=== PATIENT | female | born 1945 | race Caucasian/White ===

== ENCOUNTER → 2019-10-14 09:13 | Outpatient (BNVA) | payer MEDICARE, SELFPAY | PROVIDERS: Family Provider Family Medicine; PCP Family Medicine; Visit Provider Specialist | DX: M25.562 Pain in left knee (principal); M25.462 Effusion, left knee; M17.12 Unilateral primary osteoarthritis, left knee | CPT/HCPCS: 73560; 73565 ==

== ENCOUNTER → 2019-10-26 13:57 | Outpatient (BNVA) | payer MEDICARE, SELFPAY | PROVIDERS: Family Provider Family Medicine; PCP Family Medicine; Referring Provider Family Medicine; Visit Provider Specialist | DX: M25.561 Pain in right knee (principal); Z96.651 Presence of right artificial knee joint | CPT/HCPCS: 73562 ==

== ENCOUNTER 2020-06-01 10:15 | Outpatient (CLI) | payer MEDICARE, SELFPAY ==
--- NOTE | 2020-06-01 10:24 | MM_ITS ---
WS: [id number] BILATERAL DIGITAL SCREENING MAMMOGRAPHY WITH CAD CLINICAL INFORMATION: SCREENING HISTORY: Screening mammogram. No current complaints. COMPARISON: TECHNIQUE: Bilateral CC and MLO views. FINDINGS: Scattered fibroglandular densities bilaterally. No suspicious focal mass, asymmetry, calcifications, or architectural distortion. No evidence of malignancy. Benign luc[facility] center calcifications. MM/[place] [id number] IMPRESSION: BI-RADS: 2-Benign FOLLOW UP: 1 Year Follow-up Recommend return to annual screening mammography.
== END 2020-06-01 10:16 | disposition home or self-care (01) ==
PROVIDERS: PCP Family Medicine; Visit Provider Family Medicine
DX: Z12.31 Encounter for screening mammogram for malignant neoplasm of breast (principal)
CPT/HCPCS: 73560; 73565; 77067

== ENCOUNTER → 2020-06-03 13:30 | Outpatient (BNVA) | payer MEDICARE, SELFPAY | PROVIDERS: PCP Family Medicine; Visit Provider Specialist | DX: Z20.828 Contact with and (suspected) exposure to other viral communicable diseases (principal); M17.12 Unilateral primary osteoarthritis, left knee | CPT/HCPCS: 87635 ==

== ENCOUNTER 2020-06-07 14:52 | Observation (INO) | payer MEDICARE, SELFPAY ==
[2020-06-03 13:36] VITALS: BMI 29.5
[2020-06-03 13:44] LABS: Basophils # 0.1 10^3/uL (0.0-0.1); Basophils % 0.8 %; Eosinophils # 0.2 10^3/uL (0.0-0.8); Eosinophils % 2.1 %; Hematocrit 45.2 % (37.0-47.0); Hemoglobin 14.1 g/dL (11.5-15.3); Lymphocytes # 1.8 10^3/uL (0.8-4.8); Lymphocytes % 23.1 %; Mean Corpuscular HGB Conc 31.2 g/dL (30.0-36.0); Mean Corpuscular Hemoglobin 29.7 pg (28.0-34.0); Mean Corpuscular Volume 95.4 fL (81-99); Mean Platelet Volume 10.3 fL (7.4-10.4); Monocytes # 0.6 10^3/uL (0.2-0.9); Monocytes % 7.7 %; Neutrophils # 5.27 10^3/uL (1.8-7.7); Nucleated Red Blood Cells % 0 %; Platelet Count 323 10^3/cmm (130-400); Red Blood Count 4.74 10^6/uL (4.1-5.3); Red Cell Distribution Width 14.3 % (12.1-15.1)
[2020-06-03 13:52] LABS: Add Urine Microscopic? YES; Bilirubin Urine Neg (Negative); Blood Urine Neg (Negative); Glucose Urine UA Norm (Normal); Ketones Urine Negative (Negative); Leukocyte Esterase Urine Trace (Negative); Nitrate Urine Negative (Negative); Protein Urine Neg (Negative); Specific Gravity, Urine 1.015 (1.005-1.030); Urine Appearance Clear (CLEAR); Urine Color Yellow (Yellow); Urobilinogen Urine Norm (Negative); pH Urine 5 (5-7)
--- NOTE | 2020-06-03 13:52 | P.ANESASSM_ITS ---
Pre-Anesthetic Assessment Pre-Anesthetic Assessment: Height/Weight: Height 1.6 m Weight 75.75 kg Preop Diagnosis: DJD left knee Proposed Procedure: Operation Date: 06/07/20 07:00 Proposed Procedures p Left Total Knee Arthroplasty 43898 M17.0(Left) - Christine Mason MD Familial anesthetic complications: Received narcan for prior knee replacment Social: Social History: No alcohol and No tobacco Exam: Pre-Anes Outpt Exam: alert, oriented x 3, clear to auscultation carmen aterally and regular rate & rhythm Airway: MP: 2 Dentition: Full CV/HEM: CV/HEM: HTN GI: GI: GERD Musc/skel: Musc/skel: OA/DJD and RA Neuropsych: Neuropsych: None reported Anesthetic Plan: ASA status: 2 Anesthesia: Eval. for regional block (adductor) and Regional (specify below) (spinal) Risk of > 500 ml blood loss (7ml/kg in children): No PFSH Anesthesia PFSH: Medical History Fibromyalgia Left carpal tunnel syndrome Peroneal tendonitis of right lower leg Surgical History History of knee replacement procedure of right knee Data Anesthesia CBC & Chem 7: 06/03/20 13:20 06/03/20 13:20 Other Labs: Laboratory Results - last 48 hr 06/03/20 06/03/20 13:20 13:20 WBC 8.0 RBC 4.74 Hgb 14.1 Hct 45.2 MCV 95.4 MCH 29.7 MCHC 31.2 RDW 14.3 Plt Count 323 MPV 10.3 Neut % (Auto) 66.0 Lymph % (Auto) 23.1 [place] % (Auto) 7.7 Eos % (Auto) 2.1 Baso % (Auto) 0.8 Neut # (Auto) 5.27 Lymph # (Auto) 1.8 [place] # (Auto) 0.6 Eos # (Auto) 0.2 Baso # (Auto) 0.1 Nucleated RBC % (auto) 0 Nucleated RBCs # 0.0 Urine Color Yellow Urine Appearance Clear Urine pH 5 Ur Specific [place] 1.015 Urine Protein Neg Urine Glucose (UA) Norm Urine Ketones Negative Urine Blood Neg Urine Nitrate Negative Urine Bilirubin Neg Urine Urobilinogen Norm Ur Leukocyte Esterase Trace H Cardiac Studies: No Data to Display
[2020-06-03 13:54] LABS: Bacteria Urine TRACE /hpf; RBC Urine RARE /hpf (0-2); Squamous Epithelial Cell Urine 0-4 /hpf (0-5); WBC Urine 0-4 /hpf (0-5)
[2020-06-03 13:55] LABS: Add Urine Culture? No; Mucus Urine 1+ /hpf
[2020-06-03 14:01] LABS: Alanine Aminotransferase 17 U/L (0-33); Albumin Level 4.3 g/dL (3.5-5.2); Alkaline Phosphatase 112 IU/L (35-105); Aspartate Amino Transferase 16 U/L (0-32); Blood Urea Nitrogen 21 mg/dL (8-23); Calcium 9.6 mg/dL (8.5-10.5); Carbon Dioxide 25 mmol/L (22-29); Chloride 105 mmol/L (98-107); Creatinine Clr Calc Pharmacy 61.0433; Globulin 2.9 g/dL (1.3-4.6); Glucose 70 mg/dL (65-115); Osmolality Calculated 291 mOsm/kg (285-295); Sodium 140 mmol/L (136-145); Total Bilirubin 0.3 mg/dL (0.15-1.2); Total Protein 7.2 g/dL (6.6-8.7)
[2020-06-07] VITALS (25 sets, daily range): BP systolic 106–151; BP diastolic 63–92; PULSE 64–103; RESP 15–21; TEMP 36.2–37.3; O2SAT 91–100
[2020-06-07] MEDS: sodium chloride 0.9% 1,000 ML 30 ML IV (06:17)
--- NOTE | 2020-06-07 06:40 | P.ANESUD_ITS ---
Pre-Anesthetic Update Pre-Anesthetic Assessment: Date of Surgery/Procedure: 06/07/20 Preop Brittney gnosis: DJD left knee Proposed Procedure: Operation Date: 06/07/20 07:00 Proposed Procedures p Left Total Knee Arthroplasty 76467 M17.0(Left) - Christine Mason MD Any changes to Pre-Anesthetic Assessment?: No Last Intake: Intake Last Liquid Date 06/07/20 Last Liquid Time 00:00 Last Solid Date 06/06/20 Last Solid Time 22:30 Vitals: Temperature 97.2 F L 06/07/20 06:12 Pulse Rate 81 06/07/20 06:12 Respiratory Rate 16 06/07/20 06:12 Blood Pressure 147/83 06/07/20 06:12 Blood Pressure Lola n 104 06/07/20 06:12 Pulse Oximetry 96 06/07/20 06:12 Oxygen Delivery Me thod 06/07/20 06:05 Exam: Pre-Anes Outpt Exam: alert, oriented x 3, clear to auscultation bilaterally and regular rate & rhythm Cardiac Studies: No Data to Display
--- NOTE | 2020-06-07 07:27 | P.HPUD_ITS ---
Surgery/Procedure H&P Update DATE OF PROCEDURE: June 07, 2020 DATE H&P PERFORMED: 06/01/20 H&P UPDATE INFORMATION: I have reviewed H&P completed within last 30 days, I have examined patient prior to procedure, No changes to prior documentation and H&P is in [facility] EMR on date indicated PREOP DIAGNOSIS: DJD left knee PLANNED PROCEDURE: Operation Date: 06/07/20 07:00 Proposed Procedures p Left Total Knee Arthroplasty 95042 M17.0(Left) - Christine Mason MD Related Problem List Diagnoses (1) Primary osteoarthritis of left knee:
[2020-06-07] MEDS: vancomycin 1,000 MG in sodium chloride 0.9% 250 ML 250 MG IV (07:38)
[2020-06-07] MEDS: midazolam 1 mg/mL INJ 2 mL 2 MG IVP (08:33)
--- NOTE | 2020-06-07 09:39 | ANES.PROC ---
Anesthesia Procedures Procedure/Date: 06/07/20 Nerve Block ^: Nerve Block 1: Main Anesthesia: spinal anesthesia block Time Out Performed: Yes Consent: requested by attending/covering physician, from patient and risks and benefits reviewed Nerve block location: adductor canal Anesthesia monitors applied: pulse oximetry, EKG, BP cuff and oxygen Nerve block position: supine Anesthetic Used: ropivicaine 0.5% Amount of anesthesia used (mL): 20 Ultrasound used to: recognize landmarks Nerve Stimulator Used?: No Interscalene/Femoral BLK: 4 stimuplex 21 g needle used for position and inplane approach Injection: neg aspiration of heme Patient Tolerated Procedure: well and no complications Complications: none
[2020-06-07] MEDS: vancomycin 1,000 MG SDV 1000 MG XX (10:08)
[2020-06-07] MEDS: ceFAZolin 1,000 mg SDV 2000 MG IRRIGATION (10:09)
[2020-06-07] MEDS: sodium chloride 0.9% SDV 10 mL 20 ML (10:10)
--- NOTE | 2020-06-07 11:27 | P.PCN_ITS ---
PACU note PACU note: VSS, Good respiratory effort, report to ELECTRIC MILKERS INSTALLER Post-Anesthesia Exam: awake
--- NOTE | 2020-06-07 11:27 | PM.PACU ---
PACU note PACU note: VSS, Good respiratory effort, report to SOLAR FABRICATION TECHNICIAN Post-Anesthesia Exam: awake
--- NOTE | 2020-06-07 11:32 | XRR_ITS ---
PROCEDURE INFORMATION: Exam: XR Left Knee Exam date and time: 06/07/2020 11:33 AM Age: 75 years old Clinical indication: Device placement; Joint replacement hardware; Prior surgery; Surgery date: Post-operative (0-2 days); Additional info: Status post left total knee arthroplasty TECHNIQUE: Imaging protocol: XR Left knee. Views: 1 or 2 views. COMPARISON: CR XR knees AP WB w LT lmt ORTH 06/01/2020 11:13 AM FINDINGS: Bones/joints: The patient has undergone recent insertion of a total knee prosthesis. Gas is present in the soft tissues from the recent surgery. No fractures are seen. Position and alignment appears satisfactory. Soft tissues: See Bones/joints finding. XR/XR knee LT 1-2V [id number] IMPRESSION: Satisfactory postoperative appearance of the knee prosthesis.
--- NOTE | 2020-06-07 11:36 | P.OP_ITS ---
Operative Report Date of procedure: June 07, 2020 Pre-op Diagnosis: DJD left knee with valgus deformity Post-op diagnosis: same Post-op Findings: Severe degenerative osteoarthritis with correctable valgus deformity Procedure Done: Left total knee arthroplasty Implants: The [employer] total knee system with a size 3 triathlon beaded posterior stabilized femur left, a triathlon titanium tibial component size 3 beaded, a triathlon X3 posterior stabilized tibial bearing insert size 3 X 9 mm and a beaded triathlon titanium asymmetric patella size 32 x 10 mm Specimens removed/disposition: Bone, disposed of Pathology: none sent Surgeon: Christine Mason Structural Mill Supervisor: [employer] [facility] operating room technicians Anesthesia: Other (Spinal with IV sedation, ASA 2, and supplemental regional block) Estimated blood loss (mL): 25 Tourniquet time (min): 88 Tourniquet time: At 250 mmHg IV fluids (mL): 500 Urine output (mL): 200 Complications: None Condition: stable Disposition: PACU (Then to floor for observation when bed available) Brief History: This 75-year-old woman presented with complaints of severe left knee pain. Conservative measures were unsuccessful, and she was having difficulties with her activities of daily living. After treatment and discussion, the patient wished to proceed with total knee arthroplasty. Risks and complications were discussed with her. Preoperatively, questions were answered and consents were signed. The patient wished to proceed with left total knee arthroplasty. This was scheduled for her. Procedure: The patient was brought to the operating theater, and after undergoing adequate spinal anesthesia with supplemental regional block, ASA 2, the left lower extremity was prepped with Dura-Prep and draped in usual fashion following placement of a tourniquet high on the leg. The leg was then draped free. Following prepping and draping, the leg was exsanguinated, and the tourniquet was elevated to 250 mm Hg for a total tourniquet time of 88 minutes. Prior to elevation of the tourniquet, but following exposure of the site of surgery, a surgical pause was performed. At the time of the surgical pause, we confirmed the site and side of surgery. Additionally, we confirmed the appropriate and ti sugey administration of preoperative antibiotics, vancomycin 1 g. Transexemic acid 1 g was administered preoperatively as well. The availability of equipment was confirmed, and the patient's identity was verbalized. Following the surgical pause, an incision was made centering over the patella continuing proximally and distally as necessary to allow access to the knee joint. Dissection continued through skin and soft tissues using a scalpel. Hemostasis was obtained using electrocautery. The skin incision was followed by a median parapatellar arthrotomy. The leg was extended and the patella was everted. Following this, the leg was returned to flexed position. The distal femur was exposed and a drill hole was made in this for placement of the distal femoral jig. The distal femoral jig was set at 5? of valgus. The distal femoral cutting block was then placed in appropriate position, and an monica wing was used to confirm an appropriate amount of distal femur would be resected. The distal femoral resection was accomplished with 8 mm of bone being resected distally. After the distal femoral resection had been accomplished, the femur was measured and it measured a size 3. Medial lateral dimension also measured a size 3. A size 3 femoral cutting block was placed in position, and we were then able to accomplish the anterior, posterior and chamfer cuts. This jig was then removed and the notch guide was placed in position. With the notch guide in appropriate position, the notch was excised including resection of the anterior and posterior cruciate ligaments. This notch was to allow for the posterior stabilized femoral component. At this point, the femur was prepared and attention was directed to the proximal tibia. The posterior knee retractor was placed along with medial and lateral retractors. Further resection of the menisci was accomplished as we had better visualization. A complete meniscectomy was performed both medially and laterally with care being taken to protect the popliteus. Retractors were then placed so that the proximal tibia was well visualized. A drill hole was then made in the tibia for placement of the intramedullary guide. This guide was placed so that approximately 2 mm of bone would be resected from the deficient medial tibial plateau. The intramedullary guide was utilized supplemented with an extramedullary guide to assure appropriate alignment for the proximal tibial resection. The proximal tibial jig was then evaluated, pinned in position, and the proximal tibial resection was accomplished without difficulty. The jig was removed, and the proximal tibia was measured. It measured a size 3. We then attempted a trial reduction with a size 3 by11 mm insert. The femoral component was placed in position for the trial reduction, and the knee was placed through range of motion. The knee was felt to be slightly tight. It was difficult to get full extension. We decreased then to a size 3 x 9 mm posterior stabilized insert. With this, there was excellent stability with excellent varus-valgus alignment with appropriate patellar tracking. Extension was noted to be full as well. This was felt to be the appropriate size insert. There was full extension and flexion without lift off and the rotation of the tibia was marked. Alignment was checked from the hip to the ankle, and this was noted to be appropriate as well. Attention was then directed to the patella. The patella was measured with a caliper. We resected sufficient patella to leave approximately 14 mm of patella remaining. Measurements of the patella then indicated that a size asymmetric 32 mm x 10 mm was the appropriate patellar size. We then placed the jig to drill for the 3 pegs of the press-fit patella, and these drill holes were made without incident. A trial patella was then placed, and the knee was placed through range of motion. The patella was noted to track nicely without evidence of subluxation. The femur was prepared for a press-fit femur by drilling 2 holes for the femoral pegs. All trial components were subsequently removed. The tibial tray was then pinned into position, and we broached the tibia for the stem of the tibial component. Subsequently, 4 drill holes were made for placement of the press-fit tibia. This was accomplished without difficulty. Care was taken to assure appropriate rotation of the tibia as well as appropriate position on the proximal tibia. The tibial tray was completely seated on the proximal tibia. Following broaching, the tibial guide was removed, and all surfaces were copiously irrigated. The surfaces were then dried and a bone plug was placed into the distal femur. Exparel was also injected at this point. The Tritanium tibia was impacted into position. The beaded femur was then impacted into position in a cementless fashion. The tibial insert was placed. The patella was pressed into position with a patellar clamp. The knee was irrigated with 20 mL of Betadine and 500 mL of normal saline, and this was allowed to remain in the knee for 3-4 minutes. The knee was then copiously irrigated and suctioned dry. Attention was then directed to closure. Closure was accomplished with 0 Vicryl in the fascial tissues. Following this, a 2-0 Monocryl was used in the subcutaneous tissues, and the skin was closed with skin pee. A sterile dressing was then placed consisting of Exofin, 4x4's, sterile soft roll, and an Bennie wrap. The patient was returned the Recovery Room in a satisfactory condition. X-rays were obtained there. The patient will be discharged to the floor for postoperative rehabilitation and pain management. Associated Problem List Diagnoses (1) Primary osteoarthritis of left knee:
[2020-06-07] MEDS: ondansetron 2 mg/ML SDV 2 mL 4 MG IVP (11:47)
--- NOTE | 2020-06-07 12:06 | SUR.PHASEI ---
1203 L. PEDAL PULSE PALPATED, PT HAS SENSATION/MOVEMENT IN BILATERAL EXTREMITIES
[2020-06-07] MEDS: fentaNYL 50 mcg/mL INJ 2mL IVP ×2 (12:30→13:00)
--- NOTE | 2020-06-07 14:36 | ANE.PACU2 ---
Inpatient post-anesthesia follow up: Airway intact: Yes Vital signs: Temperature 97.6 F Pulse Rate 70 Respiratory Rate 17 Blood Pressure 135/82 Pulse Oximetry 94 Oxygen Delivery Me thod Room Air Oxygen Flow Rate Fraction of Inspir ed Oxygen Hydration adequate: Yes Nausea and vomiting: No Pain level: 2 Mental status: Baseline
[2020-06-07] MEDS: chlorhexidine gluconate 0.12% Btl 473 mL 30 ML MUCOUS MEM ×2 (15:13→17:53)
[2020-06-07] MEDS: TRAMadol 50 mg Tablet PO (15:14)
[2020-06-07] MEDS: cyclobenzaprine 10 mg Tablet PO ×2 (15:14→22:05)
[2020-06-07] MEDS: oxyCODONE 5 mg IR Tab/Cap PO ×2 (16:43→22:05)
[2020-06-07] MEDS: mupirocin oint 22 gm 1 APPLIC NASAL (17:51)
[2020-06-07] MEDS: iron polysaccharide complex 150 mg Capsule PO (17:52)
[2020-06-07] MEDS: gabapentin 300 mg Capsule PO (17:52)
[2020-06-07] MEDS: calcium carbonate 500 mg Chew Tablet 1000 MG PO (17:52)
[2020-06-07] MEDS: sennosides-docusate Tablet 2 TAB PO (17:52)
[2020-06-08] VITALS (9 sets, daily range): BP systolic 151–158; BP diastolic 84–86; PULSE 76–113; RESP 16–18; TEMP 36.7; O2SAT 93–95
[2020-06-08] MEDS: TRAMadol 50 mg Tablet PO ×3 (00:04→10:49)
--- NOTE | 2020-06-08 00:10 | PC.NURSE ---
FRESH ICE PACKS PLACED.
[2020-06-08 03:06] LABS: Basophils % 0.1 %; Hematocrit 43.7 % (37.0-47.0); Hemoglobin 13.6 g/dL (11.5-15.3); Lymphocytes # 0.8 10^3/uL (0.8-4.8); Lymphocytes % 5.7 %; Mean Corpuscular HGB Conc 31.1 g/dL (30.0-36.0); Mean Corpuscular Hemoglobin 29.9 pg (28.0-34.0); Mean Platelet Volume 10.6 fL (7.4-10.4); Monocytes # 0.9 10^3/uL (0.2-0.9); Neutrophils # 12.73 10^3/uL (1.8-7.7); Neutrophils % 87.9 %; Nucleated Red Blood Cells % 0 %; Platelet Count 317 10^3/cmm (130-400); Red Blood Count 4.55 10^6/uL (4.1-5.3); Red Cell Distribution Width 14.2 % (12.1-15.1); White Blood Count 14.5 10^3/uL (4.0-10.0)
[2020-06-08 03:32] LABS: Blood Urea Nitrogen 16 mg/dL (8-23); Calcium 9.5 mg/dL (8.5-10.5); Carbon Dioxide 22 mmol/L (22-29); Chloride 104 mmol/L (98-107); Creatinine Clr Calc Pharmacy 61.0433; Glucose 142 mg/dL (65-115); Osmolality Calculated 288 mOsm/kg (285-295); Sodium 137 mmol/L (136-145)
[2020-06-08 03:33] LABS: Anion Gap 15.4 (5-19); Potassium 4.4 mmol/L (3.5-5.1)
[2020-06-08] MEDS: oxyCODONE 5 mg IR Tab/Cap PO ×3 (04:27→13:54)
--- NOTE | 2020-06-08 04:31 | PC.NURSE ---
ice packs changed at this time.
[2020-06-08] MEDS: vancomycin 1,000 MG in sodium chloride 0.9% 250 ML 250 MG IV (06:00)
[2020-06-08] MEDS: sennosides-docusate Tablet 2 TAB PO (07:20)
[2020-06-08] MEDS: cholecalciferol (vitamin D3) 1,000 unit Tablet 4000 UNIT PO (07:20)
[2020-06-08] MEDS: meloxicam 7.5 mg tablet 15 MG PO (07:21)
[2020-06-08] MEDS: lisinopril 20 mg Tablet PO (07:21)
[2020-06-08] MEDS: docusate sodium 100 mg Capsule PO (07:21)
[2020-06-08] MEDS: atorvastatin 40 mg Tablet 20 MG PO (07:21)
[2020-06-08] MEDS: calcium carbonate 500 mg Chew Tablet 1000 MG PO (07:21)
[2020-06-08] MEDS: cyclobenzaprine 10 mg Tablet PO ×2 (07:22→13:54)
[2020-06-08] MEDS: folic acid 1 mg Tablet PO (07:22)
[2020-06-08] MEDS: gabapentin 300 mg Capsule PO (07:22)
[2020-06-08] MEDS: pantoprazole DR 40 mg Tablet PO (07:22)
[2020-06-08] MEDS: iron polysaccharide complex 150 mg Capsule PO (07:22)
[2020-06-08] MEDS: multivitamin therapeutic Tablet 1 TAB PO (07:22)
[2020-06-08] MEDS: aspirin 325 mg EC Tablet PO (07:22)
[2020-06-08] MEDS: chlorhexidine gluconate 0.12% Btl 473 mL 30 ML MUCOUS MEM (07:37)
--- NOTE | 2020-06-08 09:50 | PC.CHAP ---
Pastoral Care Encounter/Spiritual Assessment Type of Contact [] Declined transit department clerk visit [] Patient/Family/Request visit [] Outpatient visit [] Follow-up visit [] Physician referral [] Code/Alert [x] Routine visit [] Staff referral [] Actively dying [] Patient sleeping [] Family support [] [] Out of room [] Palliative care [] [] Receiving care in room [] Pre-surgical visit [] Trauma [] Long length of stay [] ICU visit [] Other: Relational/Emotional Strength [] Patient feels connected with others/family/visitors/staff [] Distress [] Loneliness/isolation [] Abandonment Spirituality of Patient [x] Person of Meghan [] Attends Confucianist of their Meghan [] Believes in Prayer [] Reads Bible or Alevism materials [] There are Spiritual issues to be addressed Back Grinder Interventions [x] Prayer [] Active listening [] Non-anxious presence [] Spiritual/emotional support [] Crisis/trauma care [] Spiritual counseling [] Bereavement support [] Provided bereavement packet [] Provided Bible/devotional materials [] Provided toy/stuffed animal, coloring book to patient or family member [] Provided Communion [] Anointing/[place] [] Salvation [x] Completed spiritual assessment [] Other: Impact on Illness or Injury [] Angry [] Fearful [] Anxious [] Often cries [] Exhaustion [] Unable to work [] Unable to attend sabianism [] Unable to walk/stand [] Unable to read [] Unable to drive [] Unable to eat/drink [] Unable to sleep [] Unable to be with family [] Patient intubated [] Other: Summary in pain Time spent with patient 15 min
--- NOTE | 2020-06-08 13:11 | P.DS_ITS ---
Discharge Providers Date of Admission: 06/07/20 14:52 Date of Discharge: June 08, 2020 Attending Provider at Admission: Christine Mason MD Attending Provider at Discharge: Christine Mason MD Primary Care Provider: Ed Paula MD Diagnoses at Discharge Discharge Diagnosis (1) Primary osteoarthritis of left knee: Status: Acute Reason for Visit Reason for Visit: Left Total Knee Arthroplasty Hospital Course Hospital Course This 75-year-old woman underwent same-day surgery for left total knee arthroplasty. She was brought into the hospital under observation status following this left total knee which she tolerated uneventfully. She did have significant pain last evening following the surgical procedure, but she is being treated with oral pain medications. She is seen today in her room. She is neurologically intact. Her dressing is removed and her wound is benign. There is no erythema or swelling. She has intact motor and sensory function as well as vascular status is normal. There is no calf tenderness. She is eating and seen with her family. She will be discharged to home with home health to follow-up with me in the office as scheduled. Given her last post total knee rehab, the patient was planning to spend an additional evening with us in the hospital, however, she is doing so well that she and her family agree that she can be discharged to home. Physical Exam Const: COMMON NORMALS: no acute distress, average body habitus, patient oriented x3 and alert GENERAL APPEARANCE: cooperative and comfortable ORIENTATION/CONSCIOUSNESS: Yes awake HENMT: COMMON NORMALS: normocephalic and atraumatic HEAD & SCALP: normocephalic and atraumatic Eye: GENERAL EYE: appearance normal, both eyes and all related structures Chest: COMMONS NORMALS: normal inspection of the chest Resp: COMMON NORMALS: normal respiratory effort EFFORT & INSPECTION: Yes able to speak in complete sentences and Yes symmetric chest movement Extremity: LEFT LOWER EXTREMITY: Yes knee joint Left knee: Yes inspection (No swelling or erythema. No hematoma.), Yes palpation (Minimal tenderness to palpation.), Yes ROM (Full extension, flexion not evaluated.) and Yes ne urovascular exam (Intact with no evidence of DVT.) Neuro: COMMON NORMALS: patient oriented x3 SENSORIUM/ORIENTATION: Yes alert Psych: COMMON NORMALS: mental status grossly normal APPEARANCE: Yes grossly normal ATTITUDE: Yes calm and Yes engaged ATTENTION/CONCENTRATION: Yes attention grossly intact Skin: COMMON NORMALS: no rashes or lesions noted GENERAL SKIN EXAM: no rashes or lesions noted Urinary Catheter Management^: F: Cath Placed During This Visit: yes, but has since been removed by the nurse Reason for Continuing Indwelling Catheter: Required Immobilization for Trauma or Surgery or Anesthesia Urinary Catheter Date of Insertion: 06/07/20 Urinary Catheter Time of Insertion: 09:25 Date Urinary Catheter Removed: 06/08/20 Time Urinary Catheter Discontinued: 06:05 Discharge Data Data Completed and Pending: Completed Studies During Hospitalization Category Date Time Status XR knee LT 1-2V 7 [id number] Urgent Exams 06/07/20 11:32 Completed Labs from last 24 hours 06/08/20 06/08/20 02:26 02:26 WBC 14.5 H RBC 4.55 Hgb 13.6 Hct 43.7 MCV 96.0 MCH 29.9 MCHC 31.1 RDW 14.2 Plt Count 317 MPV 10.6 H Neut % (Auto) 87.9 Lymph % (Auto) 5.7 [place] % (Auto) 6.0 Eos % (Auto) 0.0 Baso % (Auto) 0.1 Neut # (Auto) 12.73 H Lymph # (Auto) 0.8 [place] # (Auto) 0.9 Eos # (Auto) 0.0 Baso # (Auto) 0.0 Nucleated RBC % (a uto) 0 Nucleated RBCs # 0.0 Sodium 137 Potassium 4.4 Chloride 104 Carbon Dioxide 22 Anion Gap 15.4 BUN 16 Creatinine 0.5 GFR Calculation Not Reportable Glucose 142 H Calculated Osmolal ity 288 Calcium 9.5 Vitals: Last Vital Signs Temp 98.1 F 06/08/20 07:13 Pulse 109 H 06/08/20 09:49 Resp 16 06/08/20 09:48 BP 158/86 06/08/20 07:13 Pulse Ox 93 06/08/20 09:48 Discharge Plan Discharge Patient Disposition: Home Health Service Condition: Stable Prescriptions: New oxycodone 5 mg Tablet 5 mg PO Q4H PRN (Reason: Moderate Pain) 7 Days Qty: 30 RF: 0 acetaminophen 500 mg Tablet 1,000 mg PO Q8H Qty: 0 RF: 0 aspirin 325 mg Tablet,Delayed Release (Dr/Ec) 325 mg PO DAILY Qty: 0 RF: 0 Continued melatonin 10 mg capsule 10 mg PO DAILY RF: 0 methotrexate sodium 2.5 mg tablet 2.5 mg PO Q12H RF: 0 omeprazole 20 mg capsule,delayed release(DR/EC) 20 mg PO DAILY RF: 0 folic acid 1 mg tablet 1 mg PO DAILY RF: 0 cyclobenzaprine 10 mg tablet 10 mg PO TID RF: 0 lisinopril 20 mg tablet 20 mg PO DAILY RF: 0 pravastatin 40 mg tablet 40 mg PO DAILY RF: 0 docusate sodium [Stool Softener] 100 mg capsule 100 mg PO DAILY RF: 0 cholecalciferol (vitamin D3) 4,000 unit capsule 4,000 unit PO DAILY RF: 0 Complete Multivitamin Tablet 1 tab PO DAILY RF: 0 gabapentin 300 mg capsule 300 mg PO BID RF: 0 meloxicam 15 mg tablet 15 mg PO DAILY Qty: 30 RF: 0 turmeric root extract 500 mg Capsule 500 mg PO DAILY RF: 0 Discharge Orders: Discharge Order (Routine); Ordered 06/08/20 Ordered By: Christine Mason Referrals: Christine Mason MD [Physician] - 06/22/20 10:30 am Discharge Diet: Advance as tolerated and Usual diet Discharge Activity: Increase activity as tolerated, Limit activity as instructed, Use walker/crutches as instructed and As per PT/OT instructions Activity Restrictions/Additional Instructions: Range of motion, gait training, strengthening, and ambulation with physical therapy. Ice and elevation to left lower extremity. Home health as ordered. 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
== END 2020-06-08 14:55 | disposition home health service (06) ==
LOC: MEDSURG 14:52
PROVIDERS: Admitting Provider Specialist; PCP Family Medicine; Visit Provider Specialist
PROC: (CPT 27447; principal; 2020-06-07 07:00)
DX: M17.12 Unilateral primary osteoarthritis, left knee (principal); M21.062 Valgus deformity, not elsewhere classified, left knee; I10 Essential (primary) hypertension; K21.9 Gastro-esophageal reflux disease without esophagitis; M19.90 Unspecified osteoarthritis, unspecified site; M06.9 Rheumatoid arthritis, unspecified; M79.7 Fibromyalgia
CPT/HCPCS: 27447; 12345; 36415; 51702; 64447; 73560; 80048; 80053; 81001; 85025; 96365; 96374; 96375; 97110; 97116; 97161; 97166; 97530; C1776; C9290; G0378; J0131; J0690; J2250; J2370; J2405; J2704; J2795; J3010; J3370; J3490; J7030; J7050

== ENCOUNTER → 2020-06-23 08:24 | Outpatient (BNVA) | payer MEDICARE, SELFPAY | PROVIDERS: PCP Family Medicine; Visit Provider Specialist | DX: M17.12 Unilateral primary osteoarthritis, left knee (principal) | CPT/HCPCS: 73560; 73565 ==

== ENCOUNTER → 2020-07-25 13:53 | Outpatient (BNVA) | payer MEDICARE, SELFPAY | PROVIDERS: PCP Family Medicine; Visit Provider Specialist | DX: Z98.890 Other specified postprocedural states (principal); Z96.652 Presence of left artificial knee joint; M17.12 Unilateral primary osteoarthritis, left knee | CPT/HCPCS: 73560; 73565 ==

== ENCOUNTER → 2020-09-08 11:42 | Outpatient (BNVA) | payer MEDICARE, SELFPAY | PROVIDERS: PCP Family Medicine; Visit Provider Specialist | DX: M17.12 Unilateral primary osteoarthritis, left knee (principal); Z96.652 Presence of left artificial knee joint; Z98.890 Other specified postprocedural states | CPT/HCPCS: 73560; 73565 ==

== ENCOUNTER 2021-02-02 11:43 | Outpatient (CLI) | payer MEDICARE, SELFPAY ==
--- NOTE | 2021-02-02 12:03 | XR_ITS ---
WS: [id number] DEXA (DUAL ENERGY X-RAY ABSORPTIOMETRY) Bone mineral density was performed using a [employer] machine. HISTORY: POSTMENOPAUSAL COMPARISON: None available. Lumbar spine BMD (L1-L4): 1.337 g/cm2 T score: 1.3 Z score: 2.7 Total hip BMD: Left: 0.920 g/cm2. T score: -0.7 Z score: 0.7 Right: 0.947 g/cm2. T score: -0.5 Z score: 1.0 10 year probability of a major osteoporotic fracture is 13%. XR/XR DEXA axial skeleton* [id number] IMPRESSION: NORMAL BONE MINERAL DENSITY based upon the WHO classification for females.
== END 2021-02-02 11:44 | disposition home or self-care (01) ==
PROVIDERS: PCP Family Medicine; Visit Provider Nurse Practitioner Family
DX: Z78.0 Asymptomatic menopausal state (principal)
CPT/HCPCS: 77080

== ENCOUNTER → 2021-03-09 11:53 | Outpatient (BNVA) | payer MEDICARE, SELFPAY | PROVIDERS: PCP Family Medicine; Visit Provider Specialist | DX: M17.12 Unilateral primary osteoarthritis, left knee (principal); Z98.890 Other specified postprocedural states; Z96.652 Presence of left artificial knee joint | CPT/HCPCS: 73560; 73565 ==

== ENCOUNTER 2021-05-01 11:25 | Outpatient (CLI) | payer MEDICARE, SELFPAY ==
--- NOTE | 2021-05-01 11:38 | XR_ITS ---
WS: [id number] Exam: XR lumbar spine f/e only [id number] Date/Time of Exam: 05/01/2021 11:38 AM Reason For Exam: VERTEBROGENIC LOW BACK PAIN Comparison 02/13/2017. Grade 1 degenerative anterolisthesis of L4 on L5 with about 1 cm forward movement of L4. This has inc reased from 0.23 cm since prior study. Degenerative disc changes most marked at L3-4 and L5-S1. Facet arthropathy at all levels. Flexion and extension views show no change in the L4-5 anterolisthesis. XR/XR lumbar spine f/e only [id number] IMPRESSION: 1. Degenerative anterolisthesis of L4 on L5 with about 1 cm forward movement of L4. This shows no change in flexion or extension. Anterolisthesis has increase d since prior study 02/13/2017. 2. Degenerative disc changes and facet arthropathy as indicated above. No acute fracture.
== END 2021-05-01 11:26 | disposition home or self-care (01) ==
LOC: RAD 11:28
PROVIDERS: PCP Family Medicine; Visit Provider Nurse Practitioner
DX: M54.51 Vertebrogenic low back pain (principal)
CPT/HCPCS: 72120

== ENCOUNTER → 2021-07-10 13:33 | Outpatient (BNVA) | payer MEDICARE, SELFPAY | PROVIDERS: PCP Family Medicine; Visit Provider Specialist | DX: Z47.1 Aftercare following joint replacement surgery (principal); Z96.652 Presence of left artificial knee joint; Z96.651 Presence of right artificial knee joint | CPT/HCPCS: 73560; 73565 ==

== ENCOUNTER → 2022-02-07 10:03 | Outpatient (BNVA) | payer MEDICARE, SELFPAY | PROVIDERS: PCP Family Medicine; Visit Provider Internal Medicine Rheumatology | DX: Z79.899 Other long term (current) drug therapy; M05.79 Rheumatoid arthritis with rheumatoid factor of multiple sites without organ or systems involvement; M18.0 Bilateral primary osteoarthritis of first carpometacarpal joints; Z71.85 Encounter for immunization safety counseling | CPT/HCPCS: 73130; 99204 ==

== ENCOUNTER → 2022-03-21 15:50 | Outpatient (BNVA) | payer MEDICARE, SELFPAY | PROVIDERS: PCP Family Medicine; Visit Provider Specialist | DX: Z96.653 Presence of artificial knee joint, bilateral (principal) | CPT/HCPCS: 73560; 73565; 99213 ==

== ENCOUNTER → 2022-04-04 14:09 | Outpatient (BNVA) | payer MEDICARE, SELFPAY | PROVIDERS: PCP Family Medicine; Visit Provider Specialist | DX: M18.0 Bilateral primary osteoarthritis of first carpometacarpal joints (principal); M05.79 Rheumatoid arthritis with rheumatoid factor of multiple sites without organ or systems involvement | CPT/HCPCS: 73130 ==

== ENCOUNTER 2022-04-04 15:07 | Outpatient (CLI) | payer MEDICARE, SELFPAY | END 2022-04-04 15:08 | disposition home or self-care (01) | LOC: SPT 15:08 | PROVIDERS: PCP Family Medicine; Visit Provider Specialist | DX: Z46.89 Encounter for fitting and adjustment of other specified devices (principal); M18.11 Unilateral primary osteoarthritis of first carpometacarpal joint, right hand | CPT/HCPCS: 97760; 99213; L3924 ==

== ENCOUNTER → 2023-01-07 15:36 | Outpatient (BNVA) | payer MEDICARE, SELFPAY | PROVIDERS: PCP Family Medicine; Visit Provider Podiatrist Foot & Ankle Surgery | DX: M79.671 Pain in right foot (principal); M72.2 Plantar fascial fibromatosis | CPT/HCPCS: 73630; 99203 ==

== ENCOUNTER → 2023-03-04 15:56 | Outpatient (BNVA) | payer MEDICARE, SELFPAY | PROVIDERS: PCP Family Medicine; Visit Provider Podiatrist Foot & Ankle Surgery | DX: M72.2 Plantar fascial fibromatosis (principal); Z46.89 Encounter for fitting and adjustment of other specified devices | CPT/HCPCS: 97760; 99213; L4397 ==

== ENCOUNTER 2023-03-04 16:38 | Outpatient (CLI) | payer MEDICARE, SELFPAY | END 2023-03-04 16:39 | disposition home or self-care (01) | LOC: SPT 16:39 | PROVIDERS: PCP Family Medicine; Visit Provider Podiatrist Foot & Ankle Surgery | DX: Z46.89 Encounter for fitting and adjustment of other specified devices (principal); M72.2 Plantar fascial fibromatosis | CPT/HCPCS: 97760; L4397 ==

== ENCOUNTER → 2023-04-24 11:07 | Outpatient (BNVA) | payer MEDICARE, SELFPAY | PROVIDERS: PCP Family Medicine; Visit Provider Podiatrist Foot & Ankle Surgery | DX: M72.2 Plantar fascial fibromatosis (principal) | CPT/HCPCS: 99213 ==

== ENCOUNTER → 2023-07-02 13:36 | Outpatient (BNVA) | payer MEDICARE, SELFPAY | PROVIDERS: PCP Family Medicine; Visit Provider Podiatrist Foot & Ankle Surgery | DX: M72.2 Plantar fascial fibromatosis (principal) | CPT/HCPCS: 99213 ==

== ENCOUNTER → 2024-12-24 10:19 | Outpatient (BNVA) | payer MEDICARE, SELFPAY | PROVIDERS: PCP Family Medicine; Visit Provider Podiatrist Foot & Ankle Surgery | DX: L84 Corns and callosities (principal) | CPT/HCPCS: 99213 ==